=== PATIENT | female | born 2000 | race Caucasian/White ===

== ENCOUNTER 2023-08-19 11:35 | Emergency (ER) | payer OTHER ==
[2023-08-19 11:50] VITALS: BP 137/88; O2SAT 99
== END 2023-08-19 14:22 | disposition left against medical advice (07) ==
LOC: ED 11:35
DX: M54.9 Dorsalgia, unspecified (principal); Z53.21 Procedure and treatment not carried out due to patient leaving prior to being seen by health care provider

== ENCOUNTER 2023-08-21 14:29 | Outpatient (CLI) | payer OTHER ==
--- NOTE | 2023-08-21 23:21 | XRAY Report ---
PROCEDURE: Lumbar Spine 2-3V INDICATIONS: BACK PAIN TECHNIQUE: 3 views of the lumbar spine were acquired. COMPARISON: Thoracic spine radiograph from same day. FINDINGS: Surgical change: None. Bones: 4 dqj-kct-ayolves vertebrae are present. There are 12 paired ribs in the thoracic spine. Ther e is normal bony alignment. No vertebral body compression fractures. No suspicious bony lesions. Soft tissues: Overlying bowel gas pattern is normal. No suspicious soft tissue calcifications. IMPRESSION: Lumbar spine without acute osseous abnormalities. Normal alignment. No significant degenerative carrera e. Incidental note of 4 nonrib bearing lumbar vertebral bodies with 12 paired ribs and thoracic spine. Reviewed by: Rufino Thakur MD on 08/21/2023 11:20 PM PDT Approved by: Rufino Thakur MD on 08/21/2023 11:20 PM PDT Station ID: [id number]
--- NOTE | 2023-08-21 23:22 | XRAY Report ---
PROCEDURE: Thoracic Spine 2V INDICATIONS: BACK PAIN TECHNIQUE: 2 views of the thoracic spine were acquired. COMPARISON: None. FINDINGS: Bones: No fractures or dislocations. No suspicious bony lesions. 12 pairs of ribs are noted, and a ppear intact where visualized. Soft tissues: No paravertebral stripe thickening. IMPRESSION: No acute bony abnormality. No significant degenerative change. Reviewed by: Rufino Thakur MD on 08/21/2023 11:21 PM PDT Approved by: Rufino Thakur MD on 08/21/2023 11:21 PM PDT Station ID: [id number]
== END 2023-08-21 14:30 | disposition home or self-care (01) ==
LOC: DI.N 14:29
PROVIDERS: ATTEND Physician Assistant Medical
DX: M54.9 Dorsalgia, unspecified (principal)

== ENCOUNTER 2023-10-01 19:07 | Outpatient (CLI) | payer OTHER ==
--- NOTE | 2023-10-02 10:36 | Ultrasound Report ---
PROCEDURE: Pelvic w/Transvaginal INDICATIONS: ABNORMAL UTERINE AND VAGINAL BLEEDING TECHNIQUE: Real-time scanning was performed of the pelvic organs, with image documentation. Additional endovagi nal scanning was necessary due to incomplete visualization of the adnexal and endometrial structures by transabdominal scanning. COMPARISON: None. FINDINGS: Uterus: 8.6 x 3.3 x 5 cm. Endometrium measures 10 mm. Anteverted positioning. Ovaries: Nonenlarged right ovary. Probable follicular cyst in the left ovary measuring 2.3 x 2.1 cm. Left ovary measures 14 cc. No pathologic free fluid. IMPRESSION: No acute sonographic abnormality in the pelvis. Mildly enlarged left ovary. Left follicular cyst is seen measuring 2.3 cm Reviewed by: Herve Barrera MD on 10/02/2023 10:35 AM PDT Approved by: Herve Barrera MD on 10/02/2023 10:35 AM PDT Station ID: [id number]
== END 2023-10-01 19:08 | disposition home or self-care (01) ==
LOC: DI 19:07
PROVIDERS: ATTEND Student in an Organized Health Care Education/Training Program
DX: N93.9 Abnormal uterine and vaginal bleeding, unspecified (principal); Z84.2 Family history of other diseases of the genitourinary system; N83.8 Other noninflammatory disorders of ovary, fallopian tube and broad ligament

== ENCOUNTER 2023-10-13 00:53 | Emergency (ER) | payer OTHER ==
[2023-10-13 01:21] VITALS: BP 142/93; O2SAT 98
[2023-10-13 01:44] LABS: BASOPHILS % (AUTO) 0.1 %; EOSINOPHILS # (AUTO) 0.1 10^3/uL (0.0-0.7); EOSINOPHILS % (AUTO) 0.7 %; HCT - HEMATOCRIT 39.6 % (37.0-47.0); HGB - HEMOGLOBIN 13.1 g/dL (12.0-16.0); LYMPHOCYTES % (AUTO) 27.2 %; MEAN CORPUSCULAR HEMOGLOBIN 29.4 pg (27.0-31.0); MEAN CORPUSCULAR HGB CONC 33.1 g/dL (32.0-36.0); MEAN PLATELET VOLUME 10.7 fL (7.9-10.8); MONOCYTES # (AUTO) 0.5 10^3/uL (0.0-1.0); MONOCYTES % (AUTO) 4.3 %; NEUTROPHILS # (AUTO) 7.4 10^3/uL (1.5-6.6); NEUTROPHILS % (AUTO) 67.5 %; PLT - PLATELET COUNT 257 10^3/uL (130-450); RED BLOOD COUNT 4.45 10^6/uL (4.20-5.40); RED CELL DISTRIBUTION WIDTH 13.2 % (12.0-15.0)
[2023-10-13 01:46] LABS: BILIRUBIN,URINE NEGATIVE (NEGATIVE); GLUCOSE, URINE (UA) NEGATIVE (NEGATIVE); KETONES,URINE (UA) 15 mg/dL (NEGATIVE); LEUKOCYTE ESTERASE, URINE NEGATIVE (NEGATIVE); NITRITE,URINE NEGATIVE (NEGATIVE); OCCULT BLOOD,URINE NEGATIVE (NEGATIVE); PH,URINE 6.5 PH (5.0-7.5); PROTEIN,URINE NEGATIVE (NEGATIVE); UROBILINOGEN,URINE 0.2 (NORMAL) E.U./dL (NORMAL)
[2023-10-13 01:49] LABS: CLARITY,URINE CLEAR (CLEAR)
[2023-10-13 01:56] LABS: ALBUMIN/GLOBULIN RATIO 1.3 (1.0-2.2); ALKALINE PHOSPHATASE 69 IU/L (42-121); ALT ALANINE AMINOTRANSFERASE 14 IU/L (10-60); AST ASPARTATE AMINOTRANSFERASE 13 IU/L (10-42); BILIRUBIN,TOTAL 0.5 mg/dL (0.2-1.0); BUN - BLOOD UREA NITROGEN 7 mg/dL (6-20); CALCIUM 9.2 mg/dL (8.5-10.3); CARBON DIOXIDE - CO2 22 mmol/L (21-32); CHLORIDE 108 mmol/L (101-111); CREATININE 0.6 mg/dL (0.6-1.3); ETOH - ETHANOL < 10.0 mg/dL; GFR - MDRD 125 (>89); GLUCOSE 89 mg/dL (74-104); POTASSIUM 3.8 mmol/L (3.5-4.5); SODIUM 138 mmol/L (135-145); TOTAL PROTEIN 7.1 g/dL (6.4-8.9)
[2023-10-13 01:57] LABS: LIPASE < 10 U/L (11-82)
[2023-10-13 01:58] LABS: HCG UR QUAL NEGATIVE
[2023-10-13 02:10] LABS: AMPHETAMINE SCREEN,URINE NEGATIVE (NEGATIVE); BARBITURATE SCREEN,UR NEGATIVE (NEGATIVE); BENZODIAZEPINES SCREEN, URINE NEGATIVE (NEGATIVE); BUPRENORPHINE SCREEN, URINE NEGATIVE (NEGATIVE); COCAINE SCREEN URINE NEGATIVE (NEGATIVE); METHADONE SCREEN, URINE NEGATIVE (NEGATIVE); METHAMPHETAMINES SCREEN, URINE NEGATIVE (NEGATIVE); OPIATE SCREEN, URINE NEGATIVE (NEGATIVE); OXYCODONE SCREEN, URINE NEGATIVE (NEGATIVE); THC CANNABINOID SCREEN, URINE NEGATIVE (NEGATIVE); TRICYCLIC ANTIDEPRESSANT,URINE NEGATIVE (NEGATIVE)
--- NOTE | 2023-10-13 02:13 | ED Physician Documentation ---
PD HPI MHE - Stated complaint Stated Complaint: SI - Chief complaint Chief Complaint: MHE - History obtained from History obtained from: Patient - Additional information Additional information: The patient comes to the emergency department with chief complaint of anxiety attack today. She states that she has been under a lot of stress and that she has some issues from her past keep rearing up. Furthermore, she has been having nightmares ever since she turned 14, and this causes her to lose sleep at night. She states that she has been losing more sleep than usual lately because of her anxiety and just really overwhelmed her today. She states she cannot take the feeling of being anxious anymore so she took a knife and scratched her leg. She has done it before in the same spot many times to try to relieve anxiety, and that she immediately felt ashamed after doing it this time. She states she was not at all suicidal and she is not now. She states "I way too many things to live for". She states that her command is very supportive, as our number of her friends, and they have accompanied her to the emergency department today. She has not yet been seen by [facility] although she has been trying to get in to be seen by them. She thinks that this event will probably cause her command to rally to her because in help her get an appointment one way or another. No other complaints at this time. Patient states her anxiety is doing better right now. PD PAST MEDICAL HISTORY - Past Medical History Past Medical History: Yes Psych: Depression, Anxiety - Past Surgical History Past Surgical History: Yes HEENT: Tonsil/Adenoidectomy - Present Medications Home Medications: Ambulatory Orders Medication Instructions Recorded Confirmed Escitalopram [Lexapro] 10 mg PO DAILY 08/17/23 10/13/23 hydrOXYzine HCL [Hydroxyzine HCl] 10 mg PO Q6H PRN 08/17/23 10/13/23 Zolpidem Tartrate [Ambien] 10 mg PO HS PRN #20 tablet 10/13/23 - Allergies Allergies/Adverse Reactions: Allergies Allergy/AdvReac Type Severity Reaction Status Date / Time No Known Drug Allergies Allergy Verified 08/19/23 11:42 - Social History Does the pt smoke?: No Smoking Status: Never smoker Does the pt drink ETOH?: Yes Does the pt have substance abuse?: No - POLST Patient has POLST: No PD ED PE NORMAL - Vitals Vital signs reviewed: Yes - General General: Alert and oriented X 3, No acute distress, Well developed/nourished - HEENT HEENT: Atraumatic, PERRL, EOMI, Moist mucous membranes - Neck Neck: Supple, no meningeal sign - Cardiac Cardiac: RRR, No murmur - Respiratory Respiratory: No respiratory distress, Clear bilaterally - Abdomen Abdomen: Soft, Non tender, Non distended - Derm Derm: Normal color, Warm and dry, No rash, Other (Several linear scratches on the patient's anterior proximal thigh on the right. No active bleeding. No involvement of the subcutaneous tissues. Scars from similar wounds noted in the same general area.) - Extremities Extremities: No deformity, No edema - Neuro Neuro: Alert and oriented X 3, bundle packer 2-12 intact, Normal speech - Psych Psych: Normal mood, Normal affect Results - Vitals Vitals: Vital Signs - 24 hr 10/13/23 00:55 Temperature 36.3 C L Heart Rate 102 H Respiratory 18 Rate Blood Pressure 142/93 H O2 Saturation 98 Oxygen O2 Source Room air - Labs Labs: Laboratory Tests 10/13/23 10/13/23 10/13/23 01:12 01:12 01:20 WBC 11.0 H RBC 4.45 Hgb 13.1 Hct 39.6 MCV 89.0 MCH 29.4 MCHC 33.1 RDW 13.2 Plt Count 257 MPV 10.7 Neut # (Auto) 7.4 H Lymph # (Auto) 3.0 Runnels # (Auto) 0.5 Eos # (Auto) 0.1 Baso # (Auto) 0.0 Absolute Nucleated RBC 0.00 Nucleated RBC % 0.0 Sodium Potassium Chloride Carbon Dioxide Anion Gap BUN Creatinine Estimated GFR (MDRD) Glucose Calcium Total Bilirubin AST ALT Alkaline Phosphatase Total Protein Albumin Globulin Albumin/Globulin Ratio Lipase TSH Urine Color YELLOW Urine Clarity CLEAR Urine pH 6.5 Ur Specific [place] 1.025 Urine Protein NEGATIVE Urine Glucose (UA) NEGATIVE Urine Ketones 15 H Urine Occult Blood NEGATIVE Urine Nitrite NEGATIVE Urine Bilirubin NEGATIVE Urine Urobilinogen 0.2 (NORMAL) Ur Leukocyte Esterase NEGATIVE Ur Microscopic Review NOT INDICATED Urine Culture Comments NOT INDICATED Urine HCG, Qual NEGATIVE Salicylates Urine Opiates Screen NEGATIVE Ur Buprenorphine Scrn NEGATIVE Ur Oxycodone Screen NEGATIVE Urine Methadone Screen NEGATIVE Acetaminophen Ur Barbiturates Screen NEGATIVE Ur Tricyclics Screen NEGATIVE Ur Phencyclidine Scrn NEGATIVE Ur Amphetamine Screen NEGATIVE U Methamphetamines Scrn NEGATIVE U Benzodiazepines Scrn NEGATIVE Urine Cocaine Screen NEGATIVE U Cannabinoids Screen NEGATIVE Ur Drug Screen Comment CUTOFF CONC BELOW: Ethyl Alcohol 10/13/23 01:20 WBC RBC Hgb Hct MCV MCH MCHC RDW Plt Count MPV Neut # (Auto) Lymph # (Auto) R[place] # (Auto) Eos # (Auto) Baso # (Auto) Absolute Nucleated RBC Nucleated RBC % Sodium 138 Potassium 3.8 Chloride 108 Carbon Dioxide 22 Anion Gap 8.0 BUN 7 Creatinine 0.6 Estimated GFR (MDRD) 125 Glucose 89 Calcium 9.2 Total Bilirubin 0.5 AST 13 ALT 14 Alkaline Phosphatase 69 Total Protein 7.1 Albumin 4.0 Globulin 3.1 Albumin/Globulin Ratio 1.3 Lipase < 10 L TSH 3.50 Urine Color Urine Clarity Urine pH Ur Specific [place] Urine Protein Urine Glucose (UA) Urine Ketones Urine Occult Blood Urine Nitrite Urine Bilirubin Urine Urobilinogen Ur Leukocyte Esterase Ur Microscopic Review Urine Culture Comments Urine HCG, Qual Salicylates < 1.5 Urine Opiates Screen Ur Buprenorphine Scrn Ur Oxycodone Screen Urine Methadone Screen Acetaminophen < 0.1 Ur Barbiturates Screen Ur Tricyclics Screen Ur Phencyclidine Scrn Ur Amphetamine Screen U Methamphetamines Scrn U Benzodiazepines Scrn Urine Cocaine Screen U Cannabinoids Screen Ur Drug Screen Comment Ethyl Alcohol < 10.0 PD Medical Decision Making - ED course Complexity details: considered differential, d/w patient ED course: The patient insisted she was not suicidal at the time that she cut her leg, nor is she suicidal now. She stated which she felt she needed more than anything wishes to be able to sleep. She stated that she has lots of support as an ou tpatient and that she has history of a bad experience as an inpatient when she was a young teenager and is afraid to go inpatient. She would like to get assistance with her anxiety as an outpatient. I feel this is reasonable as the patient is not admitting to any suicidality at all. The nature of her superficial scratches would not in any way be such as to pose a danger to her life.We have discussed the need for follow-up and the need for return to the emergency department immediately, should she begin to feel suicidal. The patient expresses understanding and willingness. Departure - Departure Disposition: 01 Home, Self Care Clinical Impression: Anxiety, Self-mutilation Condition: Stable Instructions: ED Stress React Prescriptions: Zolpidem Tartrate [Ambien] 10 mg PO HS PRN #20 tablet PRN Reason: Insomnia Comments: Your prescription for the medication to help you sleep has been electronically transmitted to the [facility] pharmacy in [place]. Please work with your company on [place]. Although you are not suicidal in the ED and have not been, it is important that you get established with mental health to try to get to the bottom of the way you are feeling and also, to figure out the best plan to deal with the anxiety and it is fall out. Please do not hesitate to return to the emergency department, should you feel unsafe with yourself at home. Forms: PCP List
[2023-10-13 02:21] LABS: ACETAMINOPHEN < 0.1 ug/mL; SALICYLATE < 1.5 mg/dL
[2023-10-13] MEDS: diazePAM 5 MG TABLET PO STA (02:30)
== END 2023-10-13 02:35 | disposition home or self-care (01) ==
LOC: ED 00:53
DX: F41.0 Panic disorder [episodic paroxysmal anxiety] (principal); R45.88 Nonsuicidal self-harm
CPT/HCPCS: 36415; 80053; 80143; 80179; 80306; 81003; 81025; 82077; 83690; 84443; 85025; 99283; A9270; 81001; 87086